=== PATIENT | male | born 1990 | race Caucasian/White ===

== ENCOUNTER 2019-03-07 08:17 | Outpatient (CLI) | payer OTHER ==
[2019-03-07 09:24] VITALS: BP 132/80
--- NOTE | 2019-03-07 09:24 | SLEEP CARE CONSULTATION ---
Information from patient questionnaire entered by Mini Aden. I have reviewed and concur with the information entered by Mini Aden. This document represents the service I personally performed and the decisions made by me, Wanda Coleman RN, MSN, TELE[employer]ONE SALES REPRESENTATIVE. History of Present Illness Reason for Visit: New patient Chief Complaint: reports: Insomnia, Snoring, Observed pauses in breathing, Fatigue Duration of Symptoms: almost 2 years that seems to be getting worse despite efforts to improve. Usual bedtime: 8:30-10pm Time it takes to fall asleep: varies from 15-120 minutes Snores at night: Yes (loud and irregular) Observed to quit breathing while asleep: Yes Sleeps alone due to snoring: No Number of times waking at night: 1-3 Reasons for waking at night: reports: Choking (about 3-4 times a week), Bathroom (2-3 times a week), Other (acid reflux about once a week ) Toss, Turn, or Twitch while sleeping: Yes Recalls having dreams: No Usually gets out of bed at: 6:30 am Feels refreshed in the morning: No Morning headache: Yes (most days and takes 1-2 hours to resolve) Sleepy or fatigued during the day: Yes Ever fallen asleep while driving: No Takes day naps: No Dreams during day naps: No Prior sleep studies: No - Parasomnia Symptoms Ever been unable to move upon waking from sleep: No Walks in sleep: No Talks in sleep: No Ever acted out dreams in sleep: No Ever felt weak in the knees when startled or emotional: No Bothered by creepy, crawly, restless sensations in legs: Yes (right before sleep, relieved with movement) Problems with memory or concentration: Yes Subjective Initial [place] Sleepiness Scale score: 14 Social History The patient's occupation is a [employer]. Patient is and lives in [place]. Have you smoked in the past 12 months: No Alcohol use: Yes Alcohol amount and frequency: 2-3 drinks 1-2 times a week Caffeine use: Yes Caffeine amount and frequency: 1 cup of coffee Family History Family history of sleep disordered breathing: Yes Family Hx Sleep Apnea: Mother: Sleep apnea - Treated Allergies and Home Medications Known drug allergies: No Allergy and home medication list: None Review of Systems Cardiovascular: reports: high blood pressure (noted elevation while taking energy drinks in past ) Neurological: reports: headaches (most mornings, resolve in 1-2 hours) Endocrine: reports: sluggishness Musculoskeletal: reports: joint pain (after work out) Physical Exam Blood Pressure: 132/80 Cuff size: long Heart Rate: 78 O2 Saturation: 98 Height: 6 ft 1.6 in Weight (kg): 128.185 kg Body Mass Index: 36.6 BMI Classification: Class 2 Neck circumference: 18 HEENT: No craniofacial malformation Nostrils: patent to airflow Turbinates: boggy Septum: midline Mouth and throat: narrow oropharynx Soft palate: long Hard palate: normal Uvula: edematous Uvula visualization: 25% Mallampati Class III Tonsils: small Chin and jaw: normal size and position Neck: normal w/o lymphadenopathy or thyromegaly Heart: regular rate and rhythm Lungs: clear bilaterally Abdomen: soft, non-tender Extremities: no edema or clubbing Neurologic: no focal deficits Impression and Plan 1. Suspected Obstructive Sleep Apnea-Hypopnea Syndrome, as suggested by loud and irregular snoring, observed cessation of breath while asleep, gasping or choking in sleep, morning headache, frequent awakening during the night, unrefreshed sleep, cognitive impairment, and excessive daytime sleepiness. Narrow oropharynx and obesity are common predisposing factors for obstructive sleep apnea-hypopnea syndrome. I recommend proceeding to polysomnography to confirm the diagnosis and to assess severity. If the patient has significant sleep disordered breathing, a manual CPAP titration study will also be performed to find the optimal treatment pressure. I informed the patient of what the sleep studies involve and after some discussion, obtained agreement to proceed. The pathophysiology of obstructive sleep apnea-hypopnea syndrome was discussed with the patient and health risks of cardiovascular and cerebrovascular disease if not treated. AASM brochure for obstructive sleep apnea-hypopnea syndrome given and reviewed. Risks of drowsy driving discussed in detail and patient advised to avoid long distance driving and to mandrel puller at the first sign of drowsiness. Patient agreed to plan. * Schedule polysomnography +- manual CPAP titration study * Avoid long distance driving or driving when feeling sleepy. * Avoid alcohol, sedative and muscle relaxant around bedtime. * Attempt to lose weight. * Review instructions provided by trained office staff on how to prepare for the sleep study. * Return for follow-up after sleep study completed. I spent 100% of this 38 minute visit face to face with the patient with greater than 50% of this was spent time counseling the patient and coordination of care.
== END 2019-03-07 08:18 | disposition home or self-care (01) ==
LOC: SC 08:17
PROVIDERS: ATTEND Nurse Practitioner Family
DX: R06.83 Snoring (principal); R06.81 Apnea, not elsewhere classified; R51 Headache; G47.8 Other sleep disorders; R41.89 Other symptoms and signs involving cognitive functions and awareness; G47.10 Hypersomnia, unspecified
CPT/HCPCS: 99203; 99212

== ENCOUNTER 2019-03-16 19:29 | Outpatient (CLI) | payer OTHER | END 2019-03-16 19:30 | disposition home or self-care (01) | LOC: SC 19:29 | PROVIDERS: ATTEND Internal Medicine Pulmonary Disease | DX: G47.33 Obstructive sleep apnea (adult) (pediatric) (principal); G47.61 Periodic limb movement disorder | CPT/HCPCS: 95810 ==

== ENCOUNTER 2019-04-23 13:55 | Outpatient (CLI) | payer OTHER ==
--- NOTE | 2019-04-23 14:37 | SLEEP CARE CONSULTATION ---
Information from patient questionnaire entered by Mini Aden. I have reviewed and concur with the information entered by Mini Aden. This document represents the service I personally performed and the decisions made by me, Maciel Joseph MD, [facility]. History of Present Illness Initial [place] Sleepiness Scale score: 14 Current [place] Sleepiness Scale score: 9 Additional HPI information: HPI: Mr. Simpson returned for follow up of the sleep study he had on 03/16/2019. The polysomnography showed that the patient had slightly reduced sleep efficiency due to frequent awakenings after the sleep onset. Despite moderate sleep fragmentation,, the sleep architecture was normal. Respiratory monitoring showed moderate obstructive sleep apnea-hypopnea (AHI = 21.0) associated with frequent arousals, oxyhemoglobin desaturation and mild hypoxia ([place] oxygen saturation of 87%). The respiratory events occurred more frequently during supine sleep (supine AHI = 31.5; non-supine = 20.20). Snore was loud in intensity. There was mild periodic leg movement of sleep not contributing to the sleep fragmentation. Cardiac rhythm was normal sinus rhythm without significant arrhythmia. No abnormal behavior (parasomnia) observed during the night. The patient was informed of these findings. I explained to him the pathophysiology behind obstructive sleep apnea. We then spent quite a bit of time discussing different treatment options. For mild obstructive sleep apnea, surgery and oral appliance are alternatives to nasal CPAP therapy but in moderate or severe cases, nasal CPAP is the most effective and reliable treatment. Weight loss in an obese individual is strongly recommended. After some discussion, he opted to go with the nasal CPAP therapy. I explained to him how CPAP machine works and what to expect when using the machine. Allergies and Home Medications Drug allergies reviewed: Yes Home medication list reviewed: Yes Review of Systems Review of systems same as previous: Yes Physical Exam Weight: 282 lb Impression and Plan IMPRESSION: 1. Obstructive Sleep Apnea-Hypopnea Syndrome, moderate, associated with mild hypoxemia and sleep fragmentation. Most likely, this is the cause of the patients symptoms of unrefreshed sleep, and excessive daytime sleepiness. As mentioned above, the patient will return for a manual CPAP/BiPAP titration study. PLAN: 1. Schedule a manual CPAP/BiPAP titration study. 2. Attempt to lose weight and avoid alcohol consumption near bedtime. 3. The patient is again cautioned about driving until his sleepiness completely resolves on the CPAP therapy. 4. Return for a follow up after the sleep study. I spent 100% of this 20 minute visit face to face with the patient with greater than 50% of this was spent time counseling the patient and coordination of care.
== END 2019-04-23 13:56 | disposition home or self-care (01) ==
LOC: SC 13:55
PROVIDERS: ATTEND Internal Medicine Pulmonary Disease
DX: G47.33 Obstructive sleep apnea (adult) (pediatric) (principal)
CPT/HCPCS: 99212; 99213

== ENCOUNTER 2019-05-18 19:24 | Outpatient (CLI) | payer OTHER | END 2019-05-18 19:25 | disposition home or self-care (01) | LOC: SC 19:24 | PROVIDERS: ATTEND Internal Medicine Pulmonary Disease | DX: G47.33 Obstructive sleep apnea (adult) (pediatric) (principal) | CPT/HCPCS: 95811 ==

== ENCOUNTER 2019-06-24 14:21 | Outpatient (CLI) | payer OTHER ==
--- NOTE | 2019-06-24 16:09 | SLEEP CARE CONSULTATION ---
Information from patient questionnaire entered by Mini Aden. I have reviewed and concur with the information entered by Mini Aden. This document represents the service I personally performed and the decisions made by me, Maciel Joseph MD, [facility]. History of Present Illness Initial [place] Sleepiness Scale score: 14 Current [place] Sleepiness Scale score: 11 Additional HPI information: HPI: Mr. Simpson returns for follow up of the sleep study (a manual CPAP titration study) he had on 05/28/2019. The polysomnography showed that CPAP was initiated at 4 cmH2O and titrated up to CPAP at 16 cmH2O. CPAP at 11 cmH2O appeared to be optimal (AHI of 0 per hour on the pressure). There was supine sleep on the pressure. Oxygen saturation was normal throughout the night.. Lower CPAP settings allowed frequent residual respiratory events. The patient appeared to have tolerated positive airway pressure therapy fairly well. The patients sleep efficiency was reduced due to several awakenings after the sleep onset. The sleep architecture was relatively normal. There was no significant periodic leg movement of sleep. Cardiac rhythm was normal sinus rhythm with brief sinus tachycardia (maximum heart rate of 113 beats per minute). No abnormal behavior (parasomnia) observed during the night. The patient was informed of these findings. The patient has not yet been started on CPAP. He is somewhat familiar with the treatment because his mother uses a CPAP as well. Allergies and Home Medications Drug allergies reviewed: Yes Home medication list reviewed: Yes Review of Systems Review of systems same as previous: Yes Physical Exam Weight: 280 lb Impression and Plan IMPRESSION: 1. Obstructive Sleep Apnea-Hypopnea Syndrome, moderate, adequately controlled with CPAP of 11 cmH2O. Based on the titration study, I will start him on an autoCPAP set between 10 and 15 cmH2O. He was given a Respironics DreamWear nasal cushion mask and a full face mask to take home from the sleep study. PLAN: 1. Prescription made for an autoCPAP, heated humidifier, and related supplies. 2. Attempt to lose weight. 3. Return for follow up after one month on the new machine. I spent 100% of this visit face to face with the patient with greater than 50% of this was spent time counseling the patient and coordination of care.
== END 2019-06-24 14:22 | disposition home or self-care (01) ==
LOC: SC 14:21
PROVIDERS: ATTEND Internal Medicine Pulmonary Disease
DX: G47.33 Obstructive sleep apnea (adult) (pediatric) (principal)
CPT/HCPCS: 99212; 99213